=== PATIENT | female | born 1985 | race Caucasian/White ===

== ENCOUNTER 2016-06-20 14:10 | Emergency (ER) | payer OTHER ==
[~2016-06-20] VITALS: Ht 167.6 cm; Wt 72.9 kg
[~2016-06-20 14:10] MED LIST: BENTYL20 MG PO; CARAFATE100 MG/ML PO; CYMBALTA60 MG PO; DOCUSATE SODIU100 MG PO; ENDOCET 5-3251 EACH PO; EXCEDRIN MIGRA1 EAC3 PO; FLAGYL500 MG PO; IMITREX100 MG PO; LAMICTAL150 MG PO; LAMOTRIGINE150 MG; LOMOTIL TABLET1 EACH PO; LORTAB 5-500 T1 EACH PO; MOTRIN800 MG PO; NEXIUM40 MG PO; NORCO 5/3251 TABLET PO; ONDANSETRON HCL8 MG PO; PAXIL20 MG PO; PERCOCET 5/31 TABLET PO; PRILOSEC20 MG PO; PROMETHAZINE HC25 M1 PO; PROMETHAZINE HC50 M1 PO; PROZAC40 MG PO; SOMA250 MG PO; TOPAMAX50 MG PO; ZANTAC150 MG PO; ZANTAC300 MG PO; ZITHROMAX250 MG PO; ZOFRAN ODT4 MG PO; ZOFRAN4 MG PO
[2016-06-20 15:14] LABS: EOSINOPHIL (%) 0.6 % (0-5); HEMATOCRIT 33.8 % (36.0-46.0); IMMATURE GRANULOCYTE (%) 0.2 % (0.0-0.7); IMMATURE GRANULOCYTE COUNT 0.1 K/uL; LYMPHOCYTE COUNT 1.5 K/uL (1.0-2.8); MCH 28.6 PG (29.0-34.0); MCHC 33.1 G/DL (30.0-36.0); MCV 86.2 FL (83-99); MEAN PLAT.VOLUME 11.4 uM^3 (9.5-12.4); MONOCYTE (%) 7.8 % (3-12); MONOCYTE COUNT 0.4 K/uL (0-0.8); NEUTROPHIL (%) 62.8 % (45-76); NEUTROPHIL COUNT 3.3 K/uL (1.8-6.4); PLATELET COUNT 181 K/uL (156-360); RBC DIS.WIDTH-CV 14.8 % (11.8-14.6); RBC DIS.WIDTH-SD 45.7 % (39-53); RED BLOOD COUNT 3.92 M/uL (3.80-5.20); WHITE BLOOD COUNT 5.3 K/uL (4.1-10.2)
[2016-06-20 15:25] LABS: ADD MIUA? NO; BILIRUBIN NEGATIVE; BLOOD NEGATIVE; COLOR YELLOW ((YELLOW)); GLUCOSE (STRIP) NEGATIVE; KETONES NEGATIVE; LEUKOCYTES NEGATIVE; NITRITE NEGATIVE; PH, URINE 7.5 (5-8); PROTEIN (STRIP) NEGATIVE; UROBILINOGEN 0.2 MG/DL (0.2-1.0)
[2016-06-20 15:26] LABS: CHLORIDE 108 mEq/L (99-109); POTASSIUM 4.1 mEq/L (3.7-5.4); SODIUM 140 mEq/L (136-147)
[2016-06-20 15:28] LABS: GLUCOSE 89 mg/dL (70-99)
[2016-06-20 15:29] LABS: ANION GAP 10 MEQ/L (2-14)
[2016-06-20 15:30] LABS: TOTAL BILIRUBIN 0.2 mg/dL (0.0-1.0)
[2016-06-20 15:31] LABS: ALKALINE PHOSPHATASE 32 IU/L (3-129)
[2016-06-20 15:32] LABS: GFR ESTIMATE (CALCULATED) > 59 mL/min/
[2016-06-20 15:33] LABS: UREA NITROGEN (BUN) 7 mg/dL (9-23)
[2016-06-20 15:35] LABS: LIPASE 24 U/L (1.0-51.0)
[2016-06-20] MEDS ORDERED: BENTYL20 MG PO (15:54)
[2016-06-20] MEDS ORDERED: ZOFRAN ODT4 MG PO (15:54)
[2016-06-20 17:34] VITALS: BP 110/62
[2016-06-20] MEDS ORDERED: PHENERGAN25 MG PR (17:53)
[2016-06-20] MEDS ORDERED: PROMETHAZINE HC25 M1 PO (17:53)
== END 2016-06-20 18:17 | disposition home or self-care (01) ==
LOC: EME 14:10
PROVIDERS: Physician Assistant
DX: R11.2 Nausea with vomiting, unspecified (principal); R19.7 Diarrhea, unspecified; R10.9 Unspecified abdominal pain; F17.200 Nicotine dependence, unspecified, uncomplicated
CPT/HCPCS: 80053; 81003; 83690; 84702; 85025; 99281; 99285; J0500; J1885; J2405; J7030; Q0169

== ENCOUNTER 2016-06-29 07:48 | Emergency (ER) | payer OTHER ==
[~2016-06-29] VITALS: Ht 167.6 cm; Wt 70.8 kg
[~2016-06-29 07:48] MED LIST changes: +PHENERGAN25 MG PR
[2016-06-29 08:24] LABS: HEMATOCRIT 32.9 % (36.0-46.0); MCH 28.5 PG (29.0-34.0); MCHC 33.4 G/DL (30.0-36.0); MCV 85.2 FL (83-99); MEAN PLAT.VOLUME 11.1 uM^3 (9.5-12.4); PLATELET COUNT 165 K/uL (156-360); RBC DIS.WIDTH-CV 14.4 % (11.8-14.6); RED BLOOD COUNT 3.86 M/uL (3.80-5.20); WHITE BLOOD COUNT 4.9 K/uL (4.1-10.2)
[2016-06-29 09:01] LABS: ANION GAP 11 MEQ/L (2-14); CHLORIDE 104 MEQ/L (99-109); POTASSIUM 3.8 MEQ/L (3.7-5.4); SAMPLE HEMOLYSIS CHECK 0; SAMPLE ICTERIC CHECK 0; SAMPLE LIPEMIA CHECK 0; SODIUM 140 MEQ/L (136-147); TOTAL BILIRUBIN 0.5 MG/DL (0.0-1.0)
[2016-06-29 09:06] LABS: ALKALINE PHOSPHATASE 36 IU/L (3-129); GFR ESTIMATE (CALCULATED) > 59 mL/min/; GLUCOSE 83 mg/dL (70-99); UREA NITROGEN (BUN) 16 mg/dL (9-23)
[2016-06-29] MEDS ORDERED: ALPRAZOLAM0.5 MG PO (10:33)
[2016-06-29 11:18] LABS: ADD MIUA? NO; BILIRUBIN NEGATIVE; BLOOD NEGATIVE; COLOR DK YELLOW ((YELLOW)); GLUCOSE (STRIP) NEGATIVE; KETONES 40; LEUKOCYTES NEGATIVE; NITRITE NEGATIVE; PH, URINE 6.5 (5-8); PROTEIN (STRIP) TRACE; SPECIFIC GRAVITY 1.024 (1.000-1.030); UCUL ADDED? NO
[2016-06-29 11:48] LABS: INFLUENZA A VIRAL ANTIGEN NEGATIVE; INFLUENZA B VIRAL ANTIGEN NEGATIVE
[2016-06-29] MEDS ORDERED: COLACE100 MG PO (14:07)
[2016-06-29] MEDS ORDERED: REGLAN10 MG PO (14:07)
[2016-06-29] MEDS ORDERED: BENTYL20 MG PO (14:07)
[2016-06-29 14:26] VITALS: BP 114/63
== END 2016-06-29 14:27 | disposition home or self-care (01) ==
LOC: EME 07:48
PROVIDERS: Nurse Practitioner Family
DX: R10.9 Unspecified abdominal pain (principal); R11.2 Nausea with vomiting, unspecified; K59.00 Constipation, unspecified; B34.9 Viral infection, unspecified; D64.9 Anemia, unspecified; F17.290 Nicotine dependence, other tobacco product, uncomplicated; M79.605 Pain in left leg
CPT/HCPCS: 74020; 80053; 81003; 85027; 87502; 93971; 99281; 99285; J1885; J2765; J7030

== ENCOUNTER 2016-07-13 01:28 | Emergency (ER) | payer OTHER ==
[~2016-07-13] VITALS: Ht 167.6 cm; Wt 72.9 kg
[~2016-07-13 01:28] MED LIST changes: +ALPRAZOLAM0.5 MG PO; +COLACE100 MG PO; +REGLAN10 MG PO
[2016-07-13 01:51] LABS: ADD MIUA? NO; BILIRUBIN NEGATIVE; BLOOD NEGATIVE; COLOR YELLOW ((YELLOW)); GLUCOSE (STRIP) NEGATIVE; KETONES NEGATIVE; LEUKOCYTES NEGATIVE; NITRITE NEGATIVE; PH, URINE 6.5 (5-8); PROTEIN (STRIP) NEGATIVE; SPECIFIC GRAVITY 1.016 (1.000-1.030); UCUL ADDED? NO; UROBILINOGEN 0.2 MG/DL (0.2-1.0)
[2016-07-13 02:23] LABS: HEMATOCRIT 31.5 % (36.0-46.0); MCH 28.5 PG (29.0-34.0); MCHC 33.3 G/DL (30.0-36.0); MCV 85.6 FL (83-99); MEAN PLAT.VOLUME 11.6 uM^3 (9.5-12.4); PLATELET COUNT 178 K/uL (156-360); RBC DIS.WIDTH-CV 14.3 % (11.8-14.6); RBC DIS.WIDTH-SD 43.5 % (39-53); RED BLOOD COUNT 3.68 M/uL (3.80-5.20)
[2016-07-13 02:24] LABS: WHITE BLOOD COUNT 7.8 K/uL (4.1-10.2)
[2016-07-13 02:33] LABS: CHLORIDE 111 mEq/L (99-109); POTASSIUM 3.7 mEq/L (3.7-5.4); SODIUM 141 mEq/L (136-147)
[2016-07-13 02:36] LABS: GLUCOSE 112 mg/dL (70-99)
[2016-07-13 02:37] LABS: ANION GAP 10 MEQ/L (2-14)
[2016-07-13 02:38] LABS: TOTAL BILIRUBIN 0.1 mg/dL (0.0-1.0)
[2016-07-13 02:39] LABS: ALKALINE PHOSPHATASE 31 IU/L (3-129); GFR ESTIMATE (CALCULATED) > 59 mL/min/
[2016-07-13 02:41] LABS: UREA NITROGEN (BUN) 18 mg/dL (9-23)
[2016-07-13 02:43] LABS: LIPASE 34 U/L (1.0-51.0)
[2016-07-13 02:51] LABS: QUANTITATIVE HCG < 4.0 MIU/ML
[2016-07-13 04:42] VITALS: BP 120/75
== END 2016-07-13 04:43 | disposition home or self-care (01) ==
LOC: EME 01:28
DX: R10.13 Epigastric pain (principal); R11.2 Nausea with vomiting, unspecified; K31.84 Gastroparesis; F17.200 Nicotine dependence, unspecified, uncomplicated
CPT/HCPCS: 80053; 81003; 83690; 84702; 85027; 99281; 99285; J2765; J3010; J7030

== ENCOUNTER 2016-07-17 23:18 | Emergency (ER) | payer OTHER ==
[~2016-07-17] VITALS: Ht 167.6 cm; Wt 71.3 kg
[2016-07-18 01:22] LABS: ADD MIUA? YES; BILIRUBIN NEGATIVE; BLOOD NEGATIVE; COLOR YELLOW ((YELLOW)); GLUCOSE (STRIP) NEGATIVE; KETONES NEGATIVE; LEUKOCYTES NEGATIVE; NITRITE NEGATIVE; PROTEIN (STRIP) NEGATIVE; SPECIFIC GRAVITY 1.009 (1.000-1.030); UROBILINOGEN 0.2 MG/DL (0.2-1.0)
[2016-07-18 01:28] LABS: BACTERIA RARE /HPF; EPITHELIAL CELLS 1+ /HPF; MUCUS TRACE /LPF; RED BLOOD CELLS 0-5 /HPF (0-5); UCUL ADDED? NO; WHITE BLOOD CELLS 0-5 /HPF (0-5)
[2016-07-18 01:55] LABS: MCH 28.6 PG (29.0-34.0); MCHC 33.6 G/DL (30.0-36.0); MCV 85.1 FL (83-99); MEAN PLAT.VOLUME 11.7 uM^3 (9.5-12.4); PLATELET COUNT 210 K/uL (156-360); RBC DIS.WIDTH-CV 14.1 % (11.8-14.6); RBC DIS.WIDTH-SD 43.2 % (39-53); RED BLOOD COUNT 3.88 M/uL (3.80-5.20); WHITE BLOOD COUNT 6.1 K/uL (4.1-10.2)
[2016-07-18 02:01] LABS: CHLORIDE 107 mEq/L (99-109); POTASSIUM 3.3 mEq/L (3.7-5.4); SODIUM 140 mEq/L (136-147)
[2016-07-18 02:03] LABS: GLUCOSE 81 mg/dL (70-99)
[2016-07-18 02:05] LABS: ANION GAP 11 MEQ/L (2-14)
[2016-07-18 02:07] LABS: ALKALINE PHOSPHATASE 31 IU/L (3-129); GFR ESTIMATE (CALCULATED) > 59 mL/min/
[2016-07-18 02:08] LABS: UREA NITROGEN (BUN) 8 mg/dL (9-23)
[2016-07-18 02:10] LABS: LIPASE 14 U/L (1.0-51.0)
[2016-07-18 02:16] LABS: QUANTITATIVE HCG < 4.0 MIU/ML; TOTAL BILIRUBIN 0.5 mg/dL (0.0-1.0)
[2016-07-18] MEDS ORDERED: CITRATE OF MAG296 ML PO (02:55)
[2016-07-18] MEDS ORDERED: ZOFRAN8 MG PO (02:55)
[2016-07-18 03:06] VITALS: BP 111/64
== END 2016-07-18 03:07 | disposition home or self-care (01) ==
LOC: EME 23:18
PROVIDERS: Emergency Medicine
DX: K59.09 Other constipation (principal); D64.9 Anemia, unspecified; R00.0 Tachycardia, unspecified; Z87.19 Personal history of other diseases of the digestive system; E87.6 Hypokalemia; F17.200 Nicotine dependence, unspecified, uncomplicated
CPT/HCPCS: 74022; 80053; 81003; 83690; 84702; 85027; 99281; 99284

== ENCOUNTER 2016-07-22 21:11 | Emergency (ER) | payer OTHER ==
[~2016-07-22] VITALS: Ht 167.6 cm; Wt 70.1 kg
[~2016-07-22 21:11] MED LIST changes: +CITRATE OF MAG296 ML PO; +ZOFRAN8 MG PO
[2016-07-22 21:57] LABS: HEMATOCRIT 33.2 % (36.0-46.0); MCH 28.6 PG (29.0-34.0); MCHC 33.1 G/DL (30.0-36.0); MCV 86.5 FL (83-99); MEAN PLAT.VOLUME 11.5 uM^3 (9.5-12.4); PLATELET COUNT 195 K/uL (156-360); RBC DIS.WIDTH-CV 14.3 % (11.8-14.6); RED BLOOD COUNT 3.84 M/uL (3.80-5.20); WHITE BLOOD COUNT 5.9 K/uL (4.1-10.2)
[2016-07-22 22:06] LABS: CHLORIDE 110 mEq/L (99-109); POTASSIUM 3.6 mEq/L (3.7-5.4); SODIUM 144 mEq/L (136-147)
[2016-07-22 22:08] LABS: GLUCOSE 90 mg/dL (70-99)
[2016-07-22 22:09] LABS: ANION GAP 11 MEQ/L (2-14)
[2016-07-22 22:12] LABS: ALKALINE PHOSPHATASE 34 IU/L (3-129); GFR ESTIMATE (CALCULATED) > 59 mL/min/
[2016-07-22 22:13] LABS: UREA NITROGEN (BUN) 9 mg/dL (9-23)
[2016-07-22 22:16] LABS: TOTAL BILIRUBIN 0.2 mg/dL (0.0-1.0)
[2016-07-22 22:24] LABS: QUANTITATIVE HCG < 4.0 MIU/ML
[2016-07-22 23:57] LABS: ADD MIUA? NO; BILIRUBIN NEGATIVE; BLOOD NEGATIVE; COLOR YELLOW ((YELLOW)); GLUCOSE (STRIP) NEGATIVE; KETONES NEGATIVE; LEUKOCYTES NEGATIVE; NITRITE NEGATIVE; PROTEIN (STRIP) NEGATIVE; SPECIFIC GRAVITY 1.012 (1.000-1.030); UCUL ADDED? NO; UROBILINOGEN 0.2 MG/DL (0.2-1.0)
[2016-07-23 00:41] VITALS: BP 120/700
== END 2016-07-23 00:41 | disposition home or self-care (01) ==
LOC: EME 21:11
DX: R11.2 Nausea with vomiting, unspecified (principal); R19.7 Diarrhea, unspecified; K31.84 Gastroparesis; F17.200 Nicotine dependence, unspecified, uncomplicated; K21.9 Gastro-esophageal reflux disease without esophagitis; G43.909 Migraine, unspecified, not intractable, without status migrainosus
CPT/HCPCS: 80053; 81003; 84702; 85027; 99281; 99284; J2765; J7030

== ENCOUNTER 2016-07-30 00:13 | Emergency (ER) | payer OTHER ==
[~2016-07-30] VITALS: Ht 167.6 cm; Wt 69.9 kg
[2016-07-30 00:36] LABS: BILIRUBIN NEGATIVE; BLOOD NEGATIVE; COLOR YELLOW ((YELLOW)); GLUCOSE (STRIP) NEGATIVE; KETONES NEGATIVE; LEUKOCYTES NEGATIVE; NITRITE NEGATIVE; PROTEIN (STRIP) NEGATIVE; SPECIFIC GRAVITY 1.024 (1.000-1.030); UROBILINOGEN 0.2 MG/DL (0.2-1.0)
[2016-07-30 00:40] LABS: ADD MIUA? NO; UCUL ADDED? NO
[2016-07-30 00:40] LABS: HEMATOCRIT 35.8 % (36.0-46.0); MCH 28.5 PG (29.0-34.0); MCHC 32.7 G/DL (30.0-36.0); MCV 87.1 FL (83-99); MEAN PLAT.VOLUME 11.7 uM^3 (9.5-12.4); PLATELET COUNT 190 K/uL (156-360); RBC DIS.WIDTH-CV 14.3 % (11.8-14.6); RBC DIS.WIDTH-SD 45.1 % (39-53); RED BLOOD COUNT 4.11 M/uL (3.80-5.20); WHITE BLOOD COUNT 5.9 K/uL (4.1-10.2)
[2016-07-30 00:52] LABS: CHLORIDE 106 mEq/L (99-109); POTASSIUM 3.6 mEq/L (3.7-5.4); SODIUM 142 mEq/L (136-147)
[2016-07-30 00:55] LABS: GLUCOSE 131 mg/dL (70-99)
[2016-07-30 00:56] LABS: ANION GAP 9 MEQ/L (2-14); TOTAL BILIRUBIN 0.2 mg/dL (0.0-1.0)
[2016-07-30 00:58] LABS: ALKALINE PHOSPHATASE 39 IU/L (3-129); GFR ESTIMATE (CALCULATED) > 59 mL/min/
[2016-07-30 00:59] LABS: UREA NITROGEN (BUN) 13 mg/dL (9-23)
[2016-07-30 01:02] LABS: LIPASE 26 U/L (1.0-51.0)
[2016-07-30 01:09] LABS: QUANTITATIVE HCG < 4.0 MIU/ML
[2016-07-30 06:08] VITALS: BP 117/91
== END 2016-07-30 06:09 | disposition home or self-care (01) ==
LOC: EME 00:13
DX: R10.10 Upper abdominal pain, unspecified (principal); R11.2 Nausea with vomiting, unspecified; Z87.19 Personal history of other diseases of the digestive system; F17.200 Nicotine dependence, unspecified, uncomplicated
CPT/HCPCS: 80053; 81003; 83690; 84702; 85027; 99281; 99284; J2765

== ENCOUNTER 2016-08-25 16:54 | Emergency (ER) | payer OTHER ==
[~2016-08-25] VITALS: Ht 167.6 cm; Wt 71.9 kg
[2016-08-25 18:43] LABS: HEMATOCRIT 35.3 % (36.0-46.0); MCH 28.6 PG (29.0-34.0); MCHC 32.9 G/DL (30.0-36.0); MCV 87.2 FL (83-99); PLATELET COUNT 236 K/uL (156-360); RBC DIS.WIDTH-CV 13.3 % (11.8-14.6); RBC DIS.WIDTH-SD 42.5 % (39-53); RED BLOOD COUNT 4.05 M/uL (3.80-5.20); WHITE BLOOD COUNT 6.8 K/uL (4.1-10.2)
[2016-08-25 18:49] LABS: CHLORIDE 108 mEq/L (99-109); POTASSIUM 3.9 mEq/L (3.7-5.4); SODIUM 144 mEq/L (136-147)
[2016-08-25 18:52] LABS: GLUCOSE 89 mg/dL (70-99)
[2016-08-25 18:53] LABS: ANION GAP 10 MEQ/L (2-14)
[2016-08-25 18:54] LABS: TOTAL BILIRUBIN 0.2 mg/dL (0.0-1.0)
[2016-08-25 18:55] LABS: ALKALINE PHOSPHATASE 39 IU/L (3-129); GFR ESTIMATE (CALCULATED) > 59 mL/min/
[2016-08-25 18:56] LABS: UREA NITROGEN (BUN) 8 mg/dL (9-23)
[2016-08-25 18:59] LABS: LIPASE 11 U/L (1.0-51.0)
[2016-08-25 19:07] LABS: QUANTITATIVE HCG < 4.0 MIU/ML
[2016-08-25 19:49] LABS: ADD MIUA? NO; BILIRUBIN NEGATIVE; BLOOD NEGATIVE; COLOR STRAW ((YELLOW)); GLUCOSE (STRIP) NEGATIVE; KETONES NEGATIVE; LEUKOCYTES NEGATIVE; NITRITE NEGATIVE; PROTEIN (STRIP) NEGATIVE; UCUL ADDED? NO; UROBILINOGEN 0.2 MG/DL (0.2-1.0)
[2016-08-26 00:24] VITALS: BP 119/82
== END 2016-08-26 00:25 | disposition home or self-care (01) ==
LOC: EME 16:54
PROVIDERS: Physician Assistant
DX: R55 Syncope and collapse (principal); R53.83 Other fatigue; R11.0 Nausea; F17.200 Nicotine dependence, unspecified, uncomplicated
CPT/HCPCS: 70450; 71020; 80053; 81003; 83690; 84702; 85027; 93005; 99281; 99284

== ENCOUNTER 2016-09-21 05:20 | Emergency (ER) | payer OTHER ==
[~2016-09-21] VITALS: Ht 167.6 cm; Wt 73.1 kg
[2016-09-21 05:54] LABS: EOSINOPHIL (%) 2.2 % (0-5); EOSINOPHIL COUNT 0.1 K/uL (0-0.3); IMMATURE GRANULOCYTE (%) 0.2 % (0.0-0.7); INSTRUMENT ABS NEUTROPHIL CT 2.4 K/uL; MCH 28.4 PG (29.0-34.0); MCV 85.9 FL (83-99); MEAN PLAT.VOLUME 11.5 uM^3 (9.5-12.4); MONOCYTE (%) 7.1 % (3-12); MONOCYTE COUNT 0.4 K/uL (0-0.8); NEUTROPHIL (%) 48.8 % (45-76); NEUTROPHIL COUNT 2.4 K/uL (1.8-6.4); PLATELET COUNT 183 K/uL (156-360); RBC DIS.WIDTH-CV 13.7 % (11.8-14.6); RBC DIS.WIDTH-SD 42.6 % (39-53); RED BLOOD COUNT 3.84 M/uL (3.80-5.20)
[2016-09-21 06:03] LABS: CHLORIDE 109 mEq/L (99-109); POTASSIUM 3.6 mEq/L (3.7-5.4); SODIUM 142 mEq/L (136-147)
[2016-09-21 06:05] LABS: GLUCOSE 111 mg/dL (70-99)
[2016-09-21 06:06] LABS: ANION GAP 10 MEQ/L (2-14)
[2016-09-21 06:07] LABS: TOTAL BILIRUBIN 0.1 mg/dL (0.0-1.0)
[2016-09-21 06:09] LABS: ALKALINE PHOSPHATASE 30 IU/L (3-129); GFR ESTIMATE (CALCULATED) > 59 mL/min/
[2016-09-21 06:10] LABS: UREA NITROGEN (BUN) 9 mg/dL (9-23)
[2016-09-21 06:12] LABS: LIPASE 32 U/L (1.0-51.0)
[2016-09-21 06:20] LABS: QUANTITATIVE HCG < 4.0 MIU/ML
[2016-09-21 07:06] LABS: ADD MIUA? NO; BILIRUBIN NEGATIVE; BLOOD NEGATIVE; COLOR STRAW ((YELLOW)); GLUCOSE (STRIP) NEGATIVE; KETONES NEGATIVE; LEUKOCYTES NEGATIVE; NITRITE NEGATIVE; PROTEIN (STRIP) NEGATIVE; SPECIFIC GRAVITY 1.004 (1.000-1.030); UCUL ADDED? NO; UROBILINOGEN 0.2 MG/DL (0.2-1.0)
[2016-09-21] MEDS ORDERED: ESOMEPRAZOLE MA40 MG PO (07:07)
[2016-09-21] MEDS ORDERED: PROMETHAZINE HC25 M1 PO (07:33)
[2016-09-21 07:57] VITALS: BP 98/50
== END 2016-09-21 07:59 | disposition home or self-care (01) ==
LOC: EME → EDBD 05:20 → EME 07:59
PROVIDERS: Emergency Medicine
DX: K31.84 Gastroparesis (principal); K59.00 Constipation, unspecified; I10 Essential (primary) hypertension; F17.200 Nicotine dependence, unspecified, uncomplicated
CPT/HCPCS: 74177; 80053; 81003; 83690; 84702; 85025; 99281; 99285; J2270; J2405; J2765; J7030

== ENCOUNTER 2016-11-06 00:20 | Emergency (ER) | payer OTHER ==
[~2016-11-06] VITALS: Ht 167.6 cm; Wt 71.3 kg
[~2016-11-06 00:20] MED LIST changes: +ESOMEPRAZOLE MA40 MG PO
[2016-11-06 00:46] LABS: ADD MIUA? NO; BILIRUBIN NEGATIVE; BLOOD NEGATIVE; COLOR COLORLESS ((YELLOW)); GLUCOSE (STRIP) NEGATIVE; KETONES NEGATIVE; LEUKOCYTES NEGATIVE; NITRITE NEGATIVE; PROTEIN (STRIP) NEGATIVE; SPECIFIC GRAVITY 1.004 (1.000-1.030); UCUL ADDED? NO; UROBILINOGEN 0.2 MG/DL (0.2-1.0)
[2016-11-06 00:53] LABS: HEMATOCRIT 32.7 % (36.0-46.0); MCH 28.1 PG (29.0-34.0); MCV 84.9 FL (83-99); MEAN PLAT.VOLUME 11.8 uM^3 (9.5-12.4); PLATELET COUNT 154 K/uL (156-360); RBC DIS.WIDTH-CV 13.7 % (11.8-14.6); RBC DIS.WIDTH-SD 42.6 % (39-53); RED BLOOD COUNT 3.85 M/uL (3.80-5.20); WHITE BLOOD COUNT 6.1 K/uL (4.1-10.2)
[2016-11-06 01:01] LABS: CHLORIDE 107 mEq/L (99-109); POTASSIUM 3.6 mEq/L (3.7-5.4); SODIUM 140 mEq/L (136-147)
[2016-11-06 01:03] LABS: GLUCOSE 159 mg/dL (70-99)
[2016-11-06 01:05] LABS: ANION GAP 9 MEQ/L (2-14); TOTAL BILIRUBIN 0.2 mg/dL (0.0-1.0)
[2016-11-06 01:07] LABS: ALKALINE PHOSPHATASE 33 IU/L (3-129); GFR ESTIMATE (CALCULATED) > 59 mL/min/
[2016-11-06 01:08] LABS: UREA NITROGEN (BUN) 15 mg/dL (9-23)
[2016-11-06 01:11] LABS: LIPASE 29 U/L (1.0-51.0)
[2016-11-06 01:18] LABS: QUANTITATIVE HCG < 4.0 MIU/ML
[2016-11-06 03:16] VITALS: BP 109/66
== END 2016-11-06 03:22 | disposition home or self-care (01) ==
LOC: EME 00:20
DX: K31.84 Gastroparesis (principal); G89.29 Other chronic pain; R10.9 Unspecified abdominal pain; K59.09 Other constipation; N83.202 Unspecified ovarian cyst, left side; Z90.710 Acquired absence of both cervix and uterus; F17.200 Nicotine dependence, unspecified, uncomplicated
CPT/HCPCS: 74177; 80053; 81003; 83690; 84702; 85027; 99281; 99284; J2405; J2765; J3010; J7030

== ENCOUNTER 2016-12-02 19:12 | Emergency (ER) | payer OTHER ==
[~2016-12-02] VITALS: Ht 167.6 cm; Wt 68.0 kg
[2016-12-02 20:07] LABS: EOSINOPHIL (%) 2.4 % (0-5); EOSINOPHIL COUNT 0.1 K/uL (0-0.3); HEMATOCRIT 35.5 % (36.0-46.0); IMMATURE GRANULOCYTE (%) 0.5 % (0.0-0.7); INSTRUMENT ABS NEUTROPHIL CT 3.3 K/uL; LYMPHOCYTE COUNT 1.8 K/uL (1.0-2.8); MCH 28.3 PG (29.0-34.0); MCV 85.7 FL (83-99); MEAN PLAT.VOLUME 11.6 uM^3 (9.5-12.4); MONOCYTE (%) 10.7 % (3-12); MONOCYTE COUNT 0.6 K/uL (0-0.8); NEUTROPHIL (%) 55.1 % (45-76); NEUTROPHIL COUNT 3.3 K/uL (1.8-6.4); RBC DIS.WIDTH-CV 14.1 % (11.8-14.6); RBC DIS.WIDTH-SD 44.7 % (39-53); RED BLOOD COUNT 4.14 M/uL (3.80-5.20); WHITE BLOOD COUNT 5.9 K/uL (4.1-10.2)
[2016-12-02 20:10] LABS: PLATELET COUNT 201 K/uL (156-360)
[2016-12-02 20:13] LABS: CHLORIDE 107 mEq/L (99-109); POTASSIUM 3.8 mEq/L (3.7-5.4)
[2016-12-02 20:14] LABS: SODIUM 141 mEq/L (136-147)
[2016-12-02 20:16] LABS: GLUCOSE 93 mg/dL (70-99)
[2016-12-02 20:17] LABS: ANION GAP 8 MEQ/L (2-14)
[2016-12-02 20:18] LABS: TOTAL BILIRUBIN 0.2 mg/dL (0.0-1.0)
[2016-12-02 20:19] LABS: ALKALINE PHOSPHATASE 42 IU/L (3-129)
[2016-12-02 20:20] LABS: GFR ESTIMATE (CALCULATED) > 59 mL/min/
[2016-12-02 20:21] LABS: DIRECT BILIRUBIN 0.1 mg/dL (0.0-0.3); UREA NITROGEN (BUN) 8 mg/dL (9-23)
[2016-12-02 20:23] LABS: LIPASE 22 U/L (1.0-51.0)
[2016-12-02 20:29] LABS: QUANTITATIVE HCG < 4.0 MIU/ML
[2016-12-02] MEDS ORDERED: MOTRIN800 MG PO (22:40)
[2016-12-02] MEDS ORDERED: ZOFRAN ODT4 MG PO (22:40)
[2016-12-02] MEDS ORDERED: ULTRACET1 TABLET PO (22:40)
[2016-12-02] MEDS ORDERED: MIRALAX255 GM PO (22:40)
[2016-12-02] MEDS ORDERED: REGLAN10 MG PO (22:51)
[2016-12-02 23:02] VITALS: BP 118/89
== END 2016-12-02 23:03 | disposition home or self-care (01) ==
LOC: EME 19:12
PROVIDERS: Physician Assistant
DX: R10.9 Unspecified abdominal pain (principal); K59.00 Constipation, unspecified; F17.200 Nicotine dependence, unspecified, uncomplicated
CPT/HCPCS: 74177; 80053; 82248; 83605; 83690; 84702; 85025; 99281; 99284; J1885; J2765

== ENCOUNTER 2017-03-03 00:05 | Emergency (ER) | payer OTHER ==
[~2017-03-03] VITALS: Ht 167.6 cm; Wt 84.6 kg
[~2017-03-03 00:05] MED LIST changes: +MIRALAX255 GM PO; +ULTRACET1 TABLET PO
[2017-03-03 00:39] LABS: HEMATOCRIT 33.8 % (36.0-46.0); MCH 26.9 PG (29.0-34.0); MCHC 31.4 G/DL (30.0-36.0); MCV 85.8 FL (83-99); MEAN PLAT.VOLUME 12.1 uM^3 (9.5-12.4); PLATELET COUNT 177 K/uL (156-360); RBC DIS.WIDTH-CV 13.9 % (11.8-14.6); RBC DIS.WIDTH-SD 43.2 % (39-53); RED BLOOD COUNT 3.94 M/uL (3.80-5.20); WHITE BLOOD COUNT 6.8 K/uL (4.1-10.2)
[2017-03-03 00:45] LABS: ADD MIUA? NO; BILIRUBIN NEGATIVE; BLOOD NEGATIVE; COLOR COLORLESS ((YELLOW)); GLUCOSE (STRIP) NEGATIVE; KETONES NEGATIVE; LEUKOCYTES NEGATIVE; NITRITE NEGATIVE; PROTEIN (STRIP) NEGATIVE; SPECIFIC GRAVITY 1.004 (1.000-1.030); UROBILINOGEN 0.2 MG/DL (0.2-1.0)
[2017-03-03 00:49] LABS: CHLORIDE 106 mEq/L (99-109); SODIUM 142 mEq/L (136-147)
[2017-03-03 00:50] LABS: UCUL ADDED? NO
[2017-03-03 00:51] LABS: GLUCOSE 139 mg/dL (70-99)
[2017-03-03 00:52] LABS: ANION GAP 12 MEQ/L (2-14)
[2017-03-03 00:53] LABS: TOTAL BILIRUBIN 0.2 mg/dL (0.0-1.0)
[2017-03-03 00:54] LABS: ALKALINE PHOSPHATASE 48 IU/L (3-129)
[2017-03-03 00:55] LABS: GFR ESTIMATE (CALCULATED) > 59 mL/min/
[2017-03-03 00:56] LABS: UREA NITROGEN (BUN) 22 mg/dL (9-23)
[2017-03-03 00:58] LABS: LIPASE 44 U/L (1.0-51.0)
[2017-03-03 01:05] LABS: QUANTITATIVE HCG < 4.0 MIU/ML
[2017-03-03 03:31] VITALS: BP 114/81
== END 2017-03-03 03:32 | disposition home or self-care (01) ==
LOC: EME 00:05
DX: K31.84 Gastroparesis (principal); K76.0 Fatty (change of) liver, not elsewhere classified; G93.2 Benign intracranial hypertension; F17.200 Nicotine dependence, unspecified, uncomplicated
CPT/HCPCS: 76705; 80053; 81003; 83690; 84702; 85027; 99281; 99284; J2270; J2765

== ENCOUNTER 2017-04-17 21:26 | Emergency (ER) | payer OTHER ==
[~2017-04-17] VITALS: Ht 167.6 cm; Wt 86.1 kg
[2017-04-17 21:48] LABS: MCH 27.2 PG (29.0-34.0); MCV 82.3 FL (83-99); MEAN PLAT.VOLUME 11.8 uM^3 (9.5-12.4); PLATELET COUNT 161 K/uL (156-360); RBC DIS.WIDTH-CV 15.6 % (11.8-14.6); RBC DIS.WIDTH-SD 47.1 % (39-53); RED BLOOD COUNT 4.01 M/uL (3.80-5.20); WHITE BLOOD COUNT 6.2 K/uL (4.1-10.2)
[2017-04-17 21:57] LABS: CHLORIDE 113 mEq/L (99-109); POTASSIUM 3.5 mEq/L (3.7-5.4); SODIUM 143 mEq/L (136-147)
[2017-04-17 21:59] LABS: GLUCOSE 131 mg/dL (70-99)
[2017-04-17 22:00] LABS: ANION GAP 10 MEQ/L (2-14)
[2017-04-17 22:01] LABS: TOTAL BILIRUBIN 0.2 mg/dL (0.0-1.0)
[2017-04-17 22:03] LABS: ALKALINE PHOSPHATASE 35 IU/L (3-129); GFR ESTIMATE (CALCULATED) > 59 mL/min/
[2017-04-17 22:04] LABS: UREA NITROGEN (BUN) 16 mg/dL (9-23)
[2017-04-17 22:13] LABS: QUANTITATIVE HCG < 4.0 MIU/ML
[2017-04-17 22:24] LABS: LIPASE 42 U/L (1.0-51.0)
[2017-04-17 22:43] LABS: ADD MIUA? NO; BILIRUBIN NEGATIVE; BLOOD NEGATIVE; COLOR YELLOW ((YELLOW)); GLUCOSE (STRIP) NEGATIVE; KETONES NEGATIVE; LEUKOCYTES NEGATIVE; NITRITE NEGATIVE; PROTEIN (STRIP) NEGATIVE; SPECIFIC GRAVITY 1.016 (1.000-1.030); UCUL ADDED? NO; UROBILINOGEN 0.2 MG/DL (0.2-1.0)
[2017-04-18] MEDS ORDERED: REGLAN10 MG PO (01:21)
[2017-04-18] MEDS ORDERED: COMPAZINE25 M1 PR (01:25)
[2017-04-18 01:35] VITALS: BP 105/75
== END 2017-04-18 01:54 | disposition home or self-care (01) ==
LOC: EME 21:26
DX: R10.9 Unspecified abdominal pain (principal); R11.2 Nausea with vomiting, unspecified; K31.84 Gastroparesis; F41.9 Anxiety disorder, unspecified; F17.200 Nicotine dependence, unspecified, uncomplicated
CPT/HCPCS: 80053; 81003; 83690; 83735; 84702; 85027; 99281; 99285; J1630; J1885; J2765; J7030